=== PATIENT | male | born 1995 | race Two or more races ===

== ENCOUNTER 2024-02-18 18:46 | Emergency (ER) | payer OTHER ==
[~2024-02-18] VITALS: Ht 175.3 cm; Wt 90.9 kg
[2024-02-18 18:47] VITALS: BP 133/75; PULSE 82; RESP 16; TEMP 98.6; O2SAT 96
[2024-02-18] MEDS: TETanus/Pertussis (Acell)/Diphther VAC/PF (Tdap-Adult) 0.5ml syringe IMVAC ONE (19:19)
[2024-02-18] MEDS: LIDOcaine 1% W/epiNEPHrine 1:100,000 20ml vial SQ ONE (19:20)
[2024-02-18] MEDS ORDERED: AMOX-117 PO (19:57)
[2024-02-18] MEDS ORDERED: HYDR-3973 PO (19:57)
== END 2024-02-18 20:10 | disposition home or self-care (01) ==
LOC: ER 18:47
DX: S81.832A Puncture wound without foreign body, left lower leg, initial encounter (principal); Z79.2 Long term (current) use of antibiotics; Z79.899 Other long term (current) drug therapy; W54.0XXA Bitten by dog, initial encounter; Y93.89 Activity, other specified; Y92.89 Other specified places as the place of occurrence of the external cause; Y99.8 Other external cause status
CPT/HCPCS: 73590; 90471; 90715; 99283; A6258; A6449